=== PATIENT | female | born 1955 | race Caucasian/White ===

== ENCOUNTER 2018-11-26 08:25 | Day surgery (SDC) | payer OTHER ==
[2018-11-26] MEDS ORDERED: LIDOCAINE 100 MG SYRINGE (09:37)
[2018-11-26] MEDS ORDERED: PROPOFOL 40 ML (09:37)
== END 2018-11-26 10:43 | disposition home or self-care (01) ==
LOC: GIL 08:25
DX: Z12.11 Encounter for screening for malignant neoplasm of colon (principal); K64.4 Residual hemorrhoidal skin tags; K57.30 Diverticulosis of large intestine without perforation or abscess without bleeding; I10 Essential (primary) hypertension; E11.9 Type 2 diabetes mellitus without complications
CPT/HCPCS: 45378; 82962